=== PATIENT | female | born 1980 | race Caucasian/White ===

== ENCOUNTER 2019-02-23 20:25 | Emergency (ER) | payer MEDICARE ==
[2019-02-23] MEDS ORDERED: Sodium Chloride 0.9% 10 ML Syringe FLUSH PRN (20:39)
[2019-02-23] MEDS ORDERED: Sodium Chloride 0.9% 1,000 ML IV ONE (20:39)
--- NOTE | 2019-02-23 20:42 | EDM.PDOC ---
ED HPI GENERAL MEDICAL PROBLEM - General Chief Complaint: Chest Pain Stated Complaint: CHEST PAIN Time Seen by Provider: 02/23/19 20:38 Source of Information: Reports: Patient History Limitations: Reports: No Limitations - History of Present Illness INITIAL COMMENTS - FREE TEXT/NARRATIVE: Patient is a 38-year-old female who presents to the ED complaining of midsternal chest discomfort that has been going on for the past few days. Pain is described as a throbbing sensation that waxes and wanes. Worsened with taking a deep breath and palpation. At times pain did radiate in between her shoulders. She became little nauseated but had no shortness of breath. There is no history of coronary disease by the patient. She denies any history of hypertension, CAD, hypercholesteremia, diabetes, or first degree relatives with heart disease. Patient does smoke. She denies being . She's been under a lot more stress recently and has had similar symptoms happen in the past. She denies any acid reflux, excessive NSAID use, dark tarry stools, bloody stools, hemoptysis, fever, cough, abdominal pain, dysuria, pain or swelling to her lower extremities, and/or history of DVT/PE. Alcohol use rarely. She denies any drug use. Pain is currently a 2 out of 10 which is significant decrease with admission to the ED. There is no pain with exertion. She is scared of needles and does not want to have any blood work obtained. Chest Pain Score (Numeric/FACES): 4 - Related Data Allergies Allergy/AdvReac Type Severity Reaction Status Date / Time meperidine [From Demerol] Allergy Irritabilit Verified 02/23/19 20:34 y morphine Allergy Irritabilit Verified 02/23/19 20:34 y Penicillins Allergy Cannot Verified 02/23/19 20:34 Remember Home Meds: Home Meds . 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: Psychiatric History: Reports: Anxiety - Infectious Disease History Infectious Disease History: Reports: Chicken Pox - Past Surgical History GI Surgical History: Reports: Cholecystectomy Female Surgical History: Reports: Section Social & Family History - Family History Family Medical History: Noncontributory - Tobacco Use Smoking Status *Q: Current Every Day Smoker Years of Tobacco use: 25 Packs/Tins Daily: 1 - Caffeine Use Caffeine Use: Reports: Soda - Recreational Drug Use Recreational Drug Use: No ED ROS GENERAL - Review of Systems Review Of Systems: ROS reveals no pertinent complaints other than HPI. ED EXAM, GENERAL - Physical Exam Exam: See Below Exam Limited By: No Limitations General Appearance: Alert, WD/WN, No Apparent Distress Eye Exam: Bilateral Eye: Normal Inspection Ears: Hearing Grossly Normal Nose: Normal Inspection Throat/Mouth: Normal Inspection, Normal Oropharynx, Normal Voice, No Airway Compromise Head: Atraumatic, Normocephalic Neck: Normal Inspection, Supple, Non-Tender, Full Range of Motion Respiratory/Chest: No Respiratory Distress, Lungs Clear, Normal Breath Sounds, No Accessory Muscle Use, Other (Mild tenderness along the sternum with palpation. No ecchymosis, swelling, rash, bony abdomen abnormalities noted.) Cardiovascular: Normal Peripheral Pulses, Regular Rate, Rhythm, No Murmur Peripheral Pulses: 2+: Radial (L), Radial (R) GI/Abdominal: Normal Bowel Sounds, Soft, Non-Tender, No Organomegaly, No Distention Back Exam: Normal Inspection, Full Range of Motion. No: CVA Tenderness (L), CVA Tenderness (R) Extremities: Normal Inspection, Normal Range of Motion, Non-Tender, No Pedal Edema Neurological: Alert, Oriented, CN II-XII Intact, Normal Cognition, No Motor/ Sensory Deficits Psychiatric: Normal Affect, Normal Mood Skin Exam: Warm, Dry, Intact, Normal Color, No Rash Course - Vital Signs Last Recorded V/S: Last Vital Signs Temp 97.8 F 02/23/19 20:31 Pulse 90 02/23/19 20:31 Resp 20 02/23/19 20:31 BP 152/100 H 02/23/19 20:31 Pulse Ox 98 02/23/19 20:31 - Orders/Labs/Meds Orders: Active Orders 24 hr Category Date Time Status EKG Documentation Completion [RC] STAT Care 02/23/19 20:39 Active Peripheral IV Care [RC] . DIRECTED Care 02/23/19 20:39 Active Chest 1V Frontal [CR] Stat Exams 02/23/19 20:39 Taken Meds: Medications Discontinued Medications Generic Name Dose Route Start Last Admin Trade Name Freq PRN Reason Stop Dose Admin Sodium Chloride 1,000 mls @ 250 mls/hr 02/23/19 20:39 Normal Saline IV 02/24/19 00:38 ONETIME ONE Sodium Chloride 10 ml 02/23/19 20:39 Saline Flush FLUSH ASDIRECTED PRN Keep Vein Open - Re-Assessments/Exams Free Text/Narrative Re-Assessment/Exam: On exam patient's vital signs blood pressure 140/91, heart rate 83, SPO2 99% on room air and respiratory rate 18. She does not appear in acute distress. EKG sinus rhythm at a rate [address] changes noted. On examination there is some slight tenderness with palpation along the sternal border. There is no concerning findings noted on exam. Initially ordered chest x-ray one view and reviewed with Dr. Noriega with no acute findings noted. Final interpretation is pending. I also ordered labs for further evaluation of chest pain. The patient refuses any needles. She only wants the chest x-ray and EKG to be obtained. Patient is low risk for coronary disease. Pain is reproducible with palpation. I suspect this is not infectious in nature more likely muscle skeletal in nature since is reproducible. Return precautions were discussed with the patient. She will follow up with PCP as needed. She had no further questions or concerns and agreed with plan. Discharge instructions as documented. Departure - Departure Time of Disposition: 22:00 Disposition: Home, Self-Care 01 Condition: Good Clinical Impression: Atypical chest pain Instructions: Chest Wall Pain, [id number], Nonspecific Chest Pain Referrals: PCP,None [Primary Care Provider] - Forms: ED Department Discharge, ED Return to Work/School Form Additional Instructions: Refrain from any activities that cause worsening pain. May utilize Tylenol and Aleve for pain. Follow-up with PCP for reevaluation in the next 3-5 days. Suggest speaking with your primary care provider for further treatment for anxiety and depression. If you start to have any burning sensation to esophagus and stomach you can start using Prilosec 20 mg every day half-hour prior to breakfast, Maalox intermittently throughout the day, and Zantac 150 mg at at bedtime prior to bed. Refrain from caffeinated or carbonated beverages, spicy foods, chocolates, or any other aggravating foods. Please return back to the ED if you develop any new or worsening symptoms. - My Orders Last 24 Hours: My Active Orders 02/23/19 20:39 EKG Documentation Completion [RC] STAT Peripheral IV Care [RC] . DIRECTED Chest 1V Frontal [CR] Stat - Assessment/Plan Last 24 Hours: My Active Orders 02/23/19 20:39 EKG Documentation Completion [RC] STAT Peripheral IV Care [RC] . DIRECTED Chest 1V Frontal [CR] Stat
--- NOTE | 2019-02-24 10:16 | CR ---
Chest: Portable view of the chest was obtained. Comparison: No previous study. Heart size and mediastinum are normal. Lungs are clear. Bony structures are grossly intact. Impression: 1. Nothing acute is seen on portable chest x-ray. Diagnostic code #1
== END 2019-02-23 22:08 | disposition home or self-care (01) ==
LOC: JD.ED 20:25
DX: R07.89 Other chest pain (principal); F17.210 Nicotine dependence, cigarettes, uncomplicated; Z90.49 Acquired absence of other specified parts of digestive tract; Z88.0 Allergy status to penicillin; Z88.5 Allergy status to narcotic agent; Z88.8 Allergy status to other drugs, medicaments and biological substances
CPT/HCPCS: 71045; 71045-26; 93005; 99285-25